=== PATIENT | female | born 1960 | race Caucasian/White ===

== ENCOUNTER 2021-01-29 04:10 | Inpatient (IN) | payer MEDICARE, BC ==
[~2021-01-29] VITALS: Ht 167.6 cm; Wt 105.7 kg
[2021-01-29] MEDS ORDERED: IV NS 0.9% 1,000 ML BAG IV ONE (04:30)
[2021-01-29] MEDS ORDERED: METOCLOPRAMIDE HCL 10 MG/2 ML VIAL IV ONE (04:30)
[2021-01-29 04:41] LABS: BASOPHILS % (AUTO) 0.3 % (0.0-2.0); EOSINOPHILS % (AUTO) 1.5 % (0.0-6.0); HEMATOCRIT 38 % (33-45); HEMOGLOBIN 12.5 g/dL (11.5-14.8); LYMPHOCYTES # (AUTO) 2.3 K/uL (0.8-4.8); LYMPHOCYTES % (AUTO) 24.3 % (20.0-44.0); MEAN CORPUSCULAR HGB CONC 33 g/dl (31.0-36.0); MEAN CORPUSCULAR VOLUME 89 fL (82-100); MONOCYTES # (AUTO) 0.6 K/uL (0.1-1.30); MONOCYTES % (AUTO) 6.7 % (2.0-12.0); NEUTROPHILS # (AUTO) 6.3 K/uL (1.8-8.9); NEUTROPHILS % (AUTO) 67.2 % (43.0-81.0); PLATELET COUNT (AUTO) 253 K/uL (150-450); RED BLOOD CELL COUNT(AUTO) 4.22 MIL/uL (4.0-5.2); WHITE BLOOD COUNT (AUTO) 9.4 K/uL (4.3-11.0)
[2021-01-29 04:53] LABS: CALCIUM, SERUM 8.8 mg/dL (8.5-10.1); CREATININE 0.8 mg/dL (0.6-1.3); POTASSIUM 3.8 mmol/L (3.5-5.1)
--- NOTE | 2021-01-29 04:57 | NUR ---
Tila martins in [facility] - 01/29/21 at 0457 by CINTIA BROUGHT TO CT
--- NOTE | 2021-01-29 04:57 | NUR ---
BROUGHT TO CT
[2021-01-29] MEDS ORDERED: hydrALAZINE HCL IV 20 MG VIAL IV ONE ×2 (05:00→06:00)
--- NOTE | 2021-01-29 05:17 | NUR ---
PATIENT PROVIDED WITH COVID SWAB. PATIENT GIVEN SWAB TO HER PERSON, PATIENT SWAB AROUND TIP OF RIGHT NARES. PATIENT HANDED COVID SWAB BACK TO NURSE. NO TRAUMA NOTED TO EITHER NARES. PATIENT NASAL PHARYNGEAL INTACT.
--- NOTE | 2021-01-29 05:18 | NUR ---
called [facility] for ct results
--- NOTE | 2021-01-29 05:18 | NUR ---
[facility]ed [facility] for medical record request
--- NOTE | 2021-01-29 05:18 | NUR ---
COVID SWAB COLLECTED AND SENT TO LAB
[2021-01-29] MEDS ORDERED: hydrALAZINE HCL IV 20 MG VIAL ONE ×3 (05:24→13:04)
[2021-01-29] MEDS ORDERED: MORPHINE SULFATE INJ 2 MG/ML DISP.SYRIN ONE ×2 (05:24→08:27)
[2021-01-29] MEDS ORDERED: METOCLOPRAMIDE HCL 10 MG/2 ML VIAL ONE (05:24)
--- NOTE | 2021-01-29 05:27 | NUR ---
FAXED CLINICALS TWICE, NO RESPONSE. CALLED [facility] FOR ANOTHER FAX NUMBER, STILL REC'D NO RESPONSE FROM FAX
[2021-01-29] MEDS ORDERED: MAGNESIUM HYDROXIDE 30 ML UDC PO PRN (05:30)
[2021-01-29] MEDS ORDERED: Z GUARD REMEDY 2 OZ OINT TP PRN (05:30)
[2021-01-29] MEDS ORDERED: LORAZEPAM 1 MG TABLET PO PRN (05:30)
[2021-01-29] MEDS ORDERED: TEMAZEPAM 15 MG CAPSULE PO PRN (05:30)
[2021-01-29] MEDS ORDERED: ACETAMINOPHEN 325 MG TABLET PO PRN (05:30)
[2021-01-29] MEDS ORDERED: MAG HYDROX/AL HYDROX/SIMETH 30 ML UDC PO PRN (05:30)
[2021-01-29] MEDS ORDERED: HYDROCODONE/APAP 5/325MG TABLET PO PRN (05:30)
[2021-01-29] MEDS ORDERED: MORPHINE SULFATE INJ 2 MG/ML DISP.SYRIN IV ONE (05:30)
[2021-01-29] MEDS ORDERED: CLONIDINE HCL 0.1 MG TABLET PO PRN (05:30)
--- NOTE | 2021-01-29 05:48 | NUR ---
[facility]ED [facility], THEY WILL FAX OVER CLINICALS.
--- NOTE | 2021-01-29 07:21 | NUR ---
Tila martins in ED - 01/29/21 at 0722 by MARLY CALLED LAB REGARDING COVID SWAB, STATED THE COVID TESTING MACHINE IS NOT WORKING. LAB DOES HAVE THE PT'S COVID SWAB.
--- NOTE | 2021-01-29 07:22 | NUR ---
CALLED LAB REGARDING COVID SWAB, STATED THE COVID TESTING MACHINE IS NOT WORKING. LAB DOES HAVE THE PT'S COVID SWAB.
[2021-01-29] MEDS ORDERED: LISI10TA29 PO (08:20)
[2021-01-29] MEDS ORDERED: ICOS1CAP PO (08:20)
[2021-01-29] MEDS ORDERED: TRAZ-252 PO (08:20)
[2021-01-29] MEDS ORDERED: PANT40TA49 PO (08:20)
[2021-01-29] MEDS ORDERED: AMIT10TA6 PO (08:20)
[2021-01-29] MEDS ORDERED: ATOR10TA PO (08:20)
[2021-01-29] MEDS ORDERED: ONDANSETRON HCL/PF 4 MG/2 ML VIAL ONE (08:29)
[2021-01-29] MEDS: ONDANSETRON HCL/PF 4 MG/2 ML VIAL IVP PRN ×3 (08:31→21:28)
[2021-01-29] MEDS: MORPHINE SULFATE INJ 2 MG/ML DISP.SYRIN IV PRN ×3 (08:32→19:41)
[2021-01-29] MEDS ORDERED: NIFEdipine XL (30MG) 30 MG TAB PO SCH (09:30)
[2021-01-29] MEDS: PANTOPRAZOLE 40 MG TABLET.DR PO SCH (10:00)
[2021-01-29] MEDS: AMLODIPINE BESYLATE 5 MG TABLET PO SCH (10:00)
[2021-01-29] MEDS ORDERED: PANTOPRAZOLE 40 MG TABLET.DR PO ONE (10:16)
[2021-01-29] MEDS ORDERED: AMLODIPINE BESYLATE 5 MG TABLET ONE (10:16)
[2021-01-29] MEDS ORDERED: ENOXAPARIN SODIUM 40 MG/0.4 ML DISP.SYRIN SQ ONE (10:16)
[2021-01-29] MEDS: ENOXAPARIN SODIUM 40 MG/0.4 ML DISP.SYRIN SQ SCH (10:20)
[2021-01-29] MEDS: LISINOPRIL (10MG) 10 MG TABLET PO SCH (10:20)
[2021-01-29] MEDS ORDERED: NIFEdipine (10MG) 10 MG CAPSULE ONE (10:24)
[2021-01-29] MEDS ORDERED: ACETAMINOPHEN 325 MG TABLET ONE (11:58)
[2021-01-29] MEDS: hydrALAZINE HCL IV 20 MG VIAL IV PRN (13:05)
--- NOTE | 2021-01-29 13:49 | NUR ---
report given to Joe MCKINLEY for olivia.
--- NOTE | 2021-01-29 14:09 | NUR ---
wheeled patient via gurney accompanied by RN adn emt in no distress. RN assigned to patient at bedside to assume care.
[2021-01-29 14:30] VITALS: BP 130/67
--- NOTE | 2021-01-29 14:50 | NUR ---
RN Note: Pt admitted from ER alert awake oriented X 4. On RA, No breathing distress noted. Pt c/o headache 8/10 upon admission, feeling nauseated and vomiting X1. Ambulatory, steady gait. IV cath intact, clean & dry. Skin assessment done, intact, clean & dry. Room orientation provided. Encourage to use call light for assistance. Will administer medication for pain management & nausea as ordered. Call light within reach. Continue to monitor.
[2021-01-29 16:00] VITALS: BP 120/64
[2021-01-29] MEDS ORDERED: AMITRIPTYLINE HCL 10 MG TABLET PO SCH (18:00)
[2021-01-29 20:00] VITALS: BP 149/78
--- NOTE | 2021-01-29 21:30 | NUR ---
NAUSEA Patient still feels nauseated, denies vomiting. Ice chips, Zofran given, will reassess.
[2021-01-29] MEDS ORDERED: TRAZODONE 50 MG TABLET PO SCH (22:00)
[2021-01-29] MEDS ORDERED: ATORVASTATIN 10 MG TABLET PO SCH (22:00)
[2021-01-30 00:35] VITALS: BP 95/53
[2021-01-30 04:57] VITALS: BP 152/81
[2021-01-30] MEDS: hydrALAZINE HCL IV 20 MG VIAL IV PRN (05:43)
[2021-01-30 06:02] LABS: BASOPHILS % (AUTO) 0.2 % (0.0-2.0); EOSINOPHILS % (AUTO) 0.8 % (0.0-6.0); HEMATOCRIT 40 % (33-45); HEMOGLOBIN 12.9 g/dL (11.5-14.8); LYMPHOCYTES % (AUTO) 18.9 % (20.0-44.0); MEAN CORPUSCULAR HGB CONC 32 g/dl (31.0-36.0); MEAN CORPUSCULAR VOLUME 89 fL (82-100); MONOCYTES # (AUTO) 0.8 K/uL (0.1-1.30); MONOCYTES % (AUTO) 7.4 % (2.0-12.0); NEUTROPHILS # (AUTO) 7.7 K/uL (1.8-8.9); NEUTROPHILS % (AUTO) 72.7 % (43.0-81.0); PLATELET COUNT (AUTO) 275 K/uL (150-450); RED BLOOD CELL COUNT(AUTO) 4.47 MIL/uL (4.0-5.2); WHITE BLOOD COUNT (AUTO) 10.5 K/uL (4.3-11.0)
[2021-01-30 06:21] LABS: CALCIUM, SERUM 8.5 mg/dL (8.5-10.1); CREATININE 0.9 mg/dL (0.6-1.3); MAGNESIUM 2.3 mg/dL (1.8-2.4); PHOSPHORUS 4.5 mg/dL (2.5-4.9); POTASSIUM 3.7 mmol/L (3.5-5.1)
[2021-01-30] MEDS: MORPHINE SULFATE INJ 2 MG/ML DISP.SYRIN IV PRN (06:32)
--- NOTE | 2021-01-30 06:45 | NUR ---
END OF SHIFT REPORT Patient is A/O x4. Stable on room air, Oxygen sat in high 90's. Sinus rhythm in the Tele monitor HR 99. SBP in high 150's and low's 95. Patient still with persistent headache, per patient after Morphine she would sleep, headache decreased to 6/10 and will get too bad again. Offer to try Tylenol but refused, states that she throws up with Tylenol and Turner. At home per patient Advil not helping either. Given Morphine for now, will endorse to oncoming RN.
[2021-01-30 07:20] LABS: THYROID STIMULATING HORMONE 0.487 uIU/mL (0.358-3.74)
[2021-01-30 08:00] VITALS: BP 127/58
[2021-01-30] MEDS: PANTOPRAZOLE 40 MG TABLET.DR PO SCH (08:16)
[2021-01-30] MEDS: LISINOPRIL (10MG) 10 MG TABLET PO SCH (08:17)
[2021-01-30] MEDS: AMLODIPINE BESYLATE 5 MG TABLET PO SCH (08:17)
[2021-01-30] MEDS: ENOXAPARIN SODIUM 40 MG/0.4 ML DISP.SYRIN SQ SCH (08:18)
[2021-01-30] MEDS ORDERED: CARV6.252 PO (08:36)
[2021-01-30] MEDS ORDERED: LISI20TA30 PO (08:36)
[2021-01-30] MEDS ORDERED: AMIT10TA6 PO (08:36)
[2021-01-30] MEDS ORDERED: LISINOPRIL (10MG) 10 MG TABLET PO SCH (09:00)
[2021-01-30] MEDS ORDERED: PANTOPRAZOLE 40 MG TABLET.DR PO SCH (09:00)
--- NOTE | 2021-01-30 11:12 | NUR ---
RN NOTES MD CLEARED PT FOR DISCHARGE. DISCUSSED WITH THE FAMILY AT BEDSIDE, BP STABLE 129/73. FAMILY OK TO TAKE HER HOME.
[2021-01-30 12:00] VITALS: BP 135/57
--- NOTE | 2021-01-30 12:34 | NUR ---
RN HEMATOLOGY NOTE [facility] IS CLOSED FOR TODAY, SPOKE WITH DAUGHTER OF PATIENT ,GAVE ADDRESS AND PHONE NUMBER [facility] ON [address], CALLED TO [address] , SPOKE WITH PHARMACIST, STATED THAT WILL PROCEED ORDER
--- NOTE | 2021-01-30 12:42 | NUR ---
RN NOTES PT DISCHARGED TO HOME WITH DAUGHTER (AT BEDSIDE). IV REMOVED AND DRY DRESSING PLACED WITH NO SIGNS OF INFECTION. Addendum: 01/30/21 at 1247 by JASON ROBERTS RN TELEMETRY BOX REMOVED. EXPLAINED HOME MEDICATIONS, AND CALLED [facility], [place], READY FOR DEBURRER STRIP IN 30 MINUTES.
== END 2021-01-30 12:40 | disposition home or self-care (01) | DRG 305 ==
LOC: ER 04:13 → TRANSITION 07:30 → TELE1 13:45
PROVIDERS: ADMIT Internal Medicine; ATTEND Internal Medicine
DX: I16.9 Hypertensive crisis, unspecified (principal); E66.01 Morbid (severe) obesity due to excess calories; F32.A Depression, unspecified; F41.9 Anxiety disorder, unspecified; I10 Essential (primary) hypertension; Z86.73 Personal history of transient ischemic attack (TIA), and cerebral infarction without residual deficits; R51.9 Headache, unspecified; Z68.37 Body mass index [BMI] 37.0-37.9, adult; Z71.3 Dietary counseling and surveillance; Z20.822 Contact with and (suspected) exposure to COVID-19
CPT/HCPCS: 36415; 70450-TC; 80048-TC; 80061-TC; 83735-TC; 84100-TC; 84443-TC; 84484-TC; 85025-TC; 87081-TC; 93307-TC; G0378; J0360; J1650; J2270; J2405; J2765